=== PATIENT | male | born 1935 | race Caucasian/White ===

== ENCOUNTER 2018-05-29 22:16 | Inpatient (IN) | payer OTHER ==
[~2018-05-29] VITALS: Ht 180.3 cm; Wt 78.2 kg
[2018-05-29 23:10] LABS: BASOPHIL (%) 1.3 % (0-1); BASOPHIL COUNT 0.1 K/uL (0-0.1); EOSINOPHIL (%) 6.2 % (0-5); EOSINOPHIL COUNT 0.5 K/uL (0-0.3); HEMATOCRIT 43.2 % (38.0-50.0); HEMOGLOBIN 15.1 G/DL (12.5-16.6); IMMATURE GRANULOCYTE (%) 0.5 % (0.0-0.7); LYMPHOCYTE (%) 35.9 % (15-42); LYMPHOCYTE COUNT 3.1 K/uL (1.0-2.8); MCH 30.1 PG (29.0-34.0); MCV 86.2 FL (86-99); MONOCYTE (%) 8.8 % (3-12); MONOCYTE COUNT 0.8 K/uL (0-0.8); NEUTROPHIL (%) 47.3 % (45-76); PLATELET COUNT 226 K/uL (156-360); RBC DIS.WIDTH-CV 12.9 % (11.8-14.6); RBC DIS.WIDTH-SD 40.2 % (39-53); RED BLOOD COUNT 5.01 M/uL (4.00-5.50); WHITE BLOOD COUNT 8.5 K/uL (4.1-10.2)
[2018-05-29 23:16] LABS: INTER. NORMALIZED RATIO 1.1
[2018-05-29 23:18] LABS: CHLORIDE 105 mEq/L (99-109); POTASSIUM 3.8 mEq/L (3.7-5.4); SODIUM 141 mEq/L (136-147)
[2018-05-29 23:19] LABS: PTT 32.1 SEC (25-37)
[2018-05-29 23:20] LABS: GLUCOSE 154 mg/dL (70-99)
[2018-05-29 23:24] LABS: GFR ESTIMATE (CALCULATED) > 59 mL/min/ (58.99-99999)
[2018-05-29 23:25] LABS: UREA NITROGEN (BUN) 29 mg/dL (9-23)
[2018-05-29 23:31] LABS: TROP-I INTERPRETATION NEGATIVE; TROPONIN-I 0.02 ng/mL (0.0-0.30)
[2018-05-30] MEDS ORDERED: PEPCID40 MG PO (00:12)
[2018-05-30] MEDS ORDERED: PLAVIX75 MG PO (00:12)
[2018-05-30] MEDS ORDERED: SHINGRIX V50 MCG/0.5 IM (00:12)
[2018-05-30] MEDS ORDERED: METFORMIN HCL500 MG PO (00:12)
[2018-05-30] MEDS ORDERED: INDOCIN50 MG PO (00:13)
[2018-05-30] MEDS ORDERED: FLONASE16 G1 BOTH NARES (00:13)
[2018-05-30] MEDS ORDERED: FLEXERIL10 MG PO (00:13)
[2018-05-30] MEDS ORDERED: CARDIZEM CD,CA180 MG PO (00:13)
[2018-05-30] MEDS ORDERED: ADULT ASPIRIN81 MG PO (00:13)
[2018-05-30 02:09] LABS: HDL CHOLESTEROL 30 MG/DL (Desirable>=40); LDL CHOLESTEROL 141 mg/dL (Desirable<100); NON-HDL CHOLESTEROL 180 mg/dL (Desirable<160); TOTAL CHOLESTEROL 210 mg/dL (Desirable<200); TRIGLYCERIDES 194 MG/DL (Normal: <150)
[2018-05-30 02:10] VITALS: BP 158/90
[2018-05-30 04:10] VITALS: BP 155/71
[2018-05-30 08:45] VITALS: BP 164/88
[2018-05-30 09:25] LABS: HEMOGLOBIN A1c (GLYCOHEMOGLOB) 6.4 % (Below 5.7)
[2018-05-30] MEDS ORDERED: ATORVASTATIN CA40 MG PO (11:06)
[2018-05-30 11:15] VITALS: BP 137/77
[2018-05-30 15:27] VITALS: BP 177/81
[2018-05-30 19:30] VITALS: BP 200/100
[2018-05-31 05:55] VITALS: BP 146/96
[2018-05-31 08:35] VITALS: BP 192/83
[2018-05-31 11:19] VITALS: BP 152/72; BP 162/72
[2018-05-31 15:40] VITALS: BP 174/87
== END 2018-05-31 17:30 | disposition home or self-care (01) | DRG 66 ==
LOC: EME 22:16 → EDOF 05-30 00:55 → ENRESERV 05-30 01:03 → 4SOUTH 05-30 02:09
PROVIDERS: Emergency Medicine
DX: I63.9 Cerebral infarction, unspecified (principal); I10 Essential (primary) hypertension; I16.0 Hypertensive urgency; E11.51 Type 2 diabetes mellitus with diabetic peripheral angiopathy without gangrene; E78.5 Hyperlipidemia, unspecified; R47.81 Slurred speech; R29.810 Facial weakness; R29.703 NIHSS score 3; Z66 Do not resuscitate; Z79.82 Long term (current) use of aspirin; I25.2 Old myocardial infarction; Z86.73 Personal history of transient ischemic attack (TIA), and cerebral infarction without residual deficits; Z82.3 Family history of stroke; Z85.820 Personal history of malignant melanoma of skin; Z79.899 Other long term (current) drug therapy
CPT/HCPCS: 70450; 70496; 70498; 70551; 71045; 80048; 80061; 83036; 84484; 85025; 85610; 85730; 92523 GN; 93005; 93880; 99281; 99285; J0360; J1644; J3475; J7030